=== PATIENT | female | born 1980 | race Caucasian/White ===

== ENCOUNTER 2023-08-19 14:50 | Emergency (ER) | payer OTHER, SELFPAY ==
[2023-08-19 15:03] VITALS: BP 123/84; PULSE 84; RESP 16; O2SAT 100
[2023-08-19 15:12] VITALS: BMI 30.1
[2023-08-19 16:17] VITALS: BP 105/53; PULSE 73; RESP 16; O2SAT 100
--- NOTE | 2023-08-19 16:26 | ED_ITS ---
HPI - Overdose General Chief Complaint: Overdose Stated Complaint: OD Time Seen by Provider: 08/19/23 16:00 Source: patient and EMS Mode of arrival: EMS Limitations: no limitations History of Present Illness HPI Narrative: Patient comes to the emergency room via ambulance. Patient was found by bystanders overdose. police department gave her intranasal Narcan, patient woke up immediately. Patient awake, alert, states that she did not sustain any injury, patient states that she was smoking and she admits that she used heroin. patient states this was an accidental overdose, denies SI or HI. patient comp laining of chest pain, as bystander/PD department did a round of chest compressions/CPR until the patient woke up Related Data Allergies Allergy/AdvReac Type Severity Reaction Status Date / Time No Known Allergies Allergy Unverified 05/21/20 18:23 Review of Systems Review of Systems: Constitutional : No Weight loss, No Fever, No Chills, No Night Sweats, No Fatigue, No Malaise ENT/Mouth : No Hearing loss, No Ear Pain, No Nasal Congestion, No Sinus Pain, No Hoarseness, No sore throat, No Rhinorrhea, No Swallowing Difficulty Eyes: No Eye Pain, No Swelling, No Redness, No Foreign Body, No Discharge, No Vision Changes Cardiovascular : complaining of sternal pain status post CPR, No SOB, No Dyspnea on Exertion, No Orthopnea, No Edema, No Palpitations Respiratory : No Cough, No Sputum, No Wheezing, No Smoke Exposure, No Dyspnea Gastrointestinal : No Nausea, No Vomiting, No Diarrhea, No Constipation, No abdominal Pain, No Hematochezia, No Melena Genitourinary : no irregular bleeding, No Dysuria, No Urinary Frequency, No Hematuria, No Urinary Incontinence, No Urgency, No Flank Pain, No Urinary Flow Changes, No Hesitancy Musculoskeletal : complaining of rib pain bilaterally No joint pain, No Myalgias, No Joint Swelling Skin : No Skin Lesions, No rash Neuro : No Weakness, No Numbness, No Paresthesias, No Loss of Consciousness, No Dizziness, No Headache Psych : No Anxiety/Panic, No Depression, No SI/HI/AH/VH, Admits to polysubsta nce abuse Heme/Lymph: No Bruising, No Bleeding,No Lymphadenopathy Endocrine : No Polyuria, No Polydipsia, No Temperature Intolerance [facility] Past Medical History Medical History (Updated 08/19/23 @ 16:50 by Reema Tillman MD) Polysubstance abuse Social History Social History Advance Directives: No Advance Directives Information Provided: No Physical Exam Vital Signs: Vital Signs: Last Vital Signs Pulse 73 08/19/23 16:17 Resp 16 08/19/23 16:17 BP 105/53 L 08/19/23 16:17 Pulse Ox 100 08/19/23 16:17 O2 Del Method Room Air 08/19/23 16:17 BMI result Body Mass Index 30.1 Const: Other: Appearance: Alert. Oriented X3. No acute distress. Eyes: Pupils equal, round and reactive to light. ENT: Pharynx normal. Neck: Normal inspection. Neck supple. No lymph nodes noted. No crepitus CVS: Normal heart rate and rhythm. Pulses normal. Normal S1 and S2 Respiratory: No respiratory distress. Breath sounds normal. No Wheezing. No rales Abdomen: Soft and nontender. No rigidity. No distention. Skin: Skin warm and dry. Normal skin color. Normal skin turgor. Extremities: No lower extremity edema. No Lacerations. No Rash Neuro: Oriented X 3. No motor deficit. No sensory deficit. Moving all extremities. No slurred speech. CN 2 through 12 grossly intact Psych: calm, cooperative, normal affect Course Course Course Narrative: - patient had an accidental overdose, CPR was done by bystanders, labs and chest x-ray pending - EKG and glucose point of care pending - patient will be discharged with home Narcan Medical Decision Making Medical Decision Making MDM Narrative: - patient has been in the ED for 2 hours. Patient is completely awake, alert and oriented x3, no acute distress, calm and cooperative and clinically sober - Patient's oxygen saturation has been constantly 100% on room air, steady vitals - patient states that she does not want to wait for blood work or get chest x- rays done. Patient requesting to leave against medical advice - patient is not suicidal or homicidal, Section 12 not indicated - patient declined consult from the recover coaches or care team - patient given home Narcan to take home. Differential Diagnosis Differential Diagnoses: The differential diagnosis associated with the presentation includes ( Anxiety, depression, alcohol abuse, polysubstance abuse) Discharge Plan Discharge Clinical Impression: Drug overdose Patient Disposition: Left Against Medical Advice Instructions: Adult Overdose (ED) Additional Instructions: Please follow-up with your primary care physician tomorrow. If you have any worsening or new symptoms, please return to the emergency room or call 911
[2023-08-19] MEDS: Naloxone HCl Nasal TAKE HOME 4 MG SPRAY 8 MG NOSTRILALT (16:48)
--- NOTE | 2023-08-19 16:55 | PC.NURSE ---
pt declined further testing, and refused global director air and climate change, AMA paperwork reviewed and signed with pt. pt escorted out of ED.
== END 2023-08-19 16:58 | disposition left against medical advice (07) ==
PROVIDERS: Emergency Provider Emergency Medicine
DX: F19.10 Other psychoactive substance abuse, uncomplicated (principal); T40.1X1A Poisoning by heroin, accidental (unintentional), initial encounter; R40.4 Transient alteration of awareness; Y92.410 Unspecified street and highway as the place of occurrence of the external cause; Z53.29 Procedure and treatment not carried out because of patient's decision for other reasons
CPT/HCPCS: 99282; 99283